=== PATIENT | male | born 1955 | race Caucasian/White ===

== ENCOUNTER → 2016-06-29 | Outpatient (REF) | payer OTHER | LOC: M SFHCCLAY 06:27 | PROVIDERS: ATTEND Nurse Practitioner | DX: E11.9 Type 2 diabetes mellitus without complications (principal); Z12.5 Encounter for screening for malignant neoplasm of prostate ==

== ENCOUNTER → 2017-02-14 | Outpatient (CLI) | payer OTHER ==
--- NOTE | 2017-02-14 09:36 | REP ---
RIGHT UPPER QUADRANT ULTRASOUND: Real-time sonographic evaluation of the right upper quadrant performed. There is a small amount of gallbladder sludge but no gallstones are seen. There is no evidence of significant gallbladder wall thickening. There is no pericholecystic fluid. There is no intrahepatic or extrahepatic biliary dilatation, common bile duct measuring 4 mm in diameter. There is diffuse heterogeneous increased echotexture of the liver compatible with diffuse fibrofatty infiltration. Two cysts are seen in the left lobe measuring 9 mm and 10 mm in diameter maximally. A cyst in the right lobe of the liver measures 2.8 x 2.0 x 2.2 cm. The visualized pancreas is grossly unremarkable but the pancreas is not well seen due to overlying bowel gas. The right kidney demonstrates no hydronephrosis or nephrolithiasis with normal size at 12.6 cm in length. IMPRESSION: Small amount of sludge in the gallbladder. No gallstones are seen. There is diffuse fibrofatty infiltration of the liver with a few cysts noted as above. Signed by Arturo Estrella MD 02/16/2017 08:53 A
== END ==
LOC: M RAD 08:12
PROVIDERS: ATTEND Nurse Practitioner Family
DX: K76.0 Fatty (change of) liver, not elsewhere classified (principal)